=== PATIENT | male | born 1950 | race Caucasian/White ===

== ENCOUNTER 2023-02-08 05:41 | Day surgery (SDC) | payer MEDICARE, OTHER ==
[2023-02-04 14:52] VITALS: BMI 29.2
[2023-02-08] MEDS ORDERED: Magnesium 5 GM/10 ML VIAL ONE (06:38)
[2023-02-08] MEDS ORDERED: Dexmedetomidine 200 MCG/2 ML VIAL ONE (06:38)
[2023-02-08] MEDS ORDERED: fentaNYL PF 100 MCG/2 ML SYRINGE ONE (06:39)
[2023-02-08] MEDS ORDERED: Thrombin 5000 UNITS/5 ML VIAL ONE (06:44)
[2023-02-08] MEDS ORDERED: CEFAZOLIN 2 GM VIAL ONE ×2 (06:50→10:40)
[2023-02-08] MEDS ORDERED: Sodium Chloride 0.9% 100 ML ONE ×2 (06:50→10:40)
[2023-02-08] MEDS ORDERED: NEOSTIGMINE 3 MG/3 ML SYR 3 MG/3 ML SYRINGE ONE (07:26)
[2023-02-08] MEDS ORDERED: PROPOFOL 200 MG/20 ML VIAL ONE (07:26)
[2023-02-08] MEDS ORDERED: Lidocaine 1% PF 5 ML VIAL ONE (07:26)
[2023-02-08] MEDS ORDERED: Ondansetron PF 4 MG/2 ML Vial ONE (07:26)
[2023-02-08] MEDS ORDERED: GLYCOPYRROLATE/PF 0.2 MG/ML VIAL ONE (07:26)
[2023-02-08] MEDS ORDERED: Dexamethasone 20 MG/5 ML VIAL ONE (07:26)
[2023-02-08] MEDS ORDERED: Rocuronium Bromide 10 MG/ML (10ML VIAL) ONE (07:26)
[2023-02-08] MEDS ORDERED: fentaNYL 50 mcg/mL 1 mL Vial ONE ×2 (09:03→09:14)
[2023-02-08] MEDS ORDERED: Promethazine HCl 25 MG/ML VIAL ONE (09:49)
[2023-02-08] MEDS ORDERED: Tamsulosin HCl 0.4 MG CAP ONE (10:04)
[2023-02-08] MEDS ORDERED: HYDROcodone/Acetaminophen 5/325 mg Tablet ONE (10:06)
== END 2023-02-08 11:23 | disposition home or self-care (01) ==
LOC: SDC 05:41
PROVIDERS: ATTEND Neurological Surgery
PROC: 0RG20A0 Fusion of 2 or more Cervical Vertebral Joints with Interbody Fusion Device, Anterior Approach, Anterior Column, Open Approach (ICD-10-PCS; principal; 2023-02-08)
PROC: 0RT30ZZ Resection of Cervical Vertebral Disc, Open Approach (ICD-10-PCS; 2023-02-08)
DX: M50.122 Cervical disc disorder at C5-C6 level with radiculopathy (principal); M48.02 Spinal stenosis, cervical region; E78.5 Hyperlipidemia, unspecified; I10 Essential (primary) hypertension; M19.90 Unspecified osteoarthritis, unspecified site; N40.0 Benign prostatic hyperplasia without lower urinary tract symptoms; Z79.899 Other long term (current) drug therapy
CPT/HCPCS: 20930; 20936; 22551; 22552; 22845; 22853 ×2; 93005; J3010; 93010; C1713; C1889; J1100; J2405; J2550; J2704; J3475; J3490